=== PATIENT | male | born 1985 | race Caucasian/White ===

== ENCOUNTER 2025-01-28 13:14 | Emergency (ER) | payer BC, SELFPAY ==
[2025-01-28 13:24] VITALS: BP 138/20; PULSE 92; RESP 20; TEMP 37.3; O2SAT 96
--- NOTE | 2025-01-28 13:27 | ED.WOUNDLAC ---
HPI - Wound/Laceration General Chief Complaint: Wound/Laceration Stated Complaint: Left Ankle Laceration Time Seen by Provider: 01/28/25 13:17 patient presents to [facility] with complaints of continued bleeding to a laceration to left ankle that he sustained yesterday. Patient noted he was working on a bathroom remodel and cut his ankle on a piece of porcelain from the toilet. Patient unsure of when last tetanus vaccination was. Patient noted be clean the area and applied a bandage yesterday when he went to remove the bandage today to clean this noticed that this was still bleeding. Patient denies any changes in range of motion, numbness, or tingling. Related Data Home Medications ?Medication ?Instructions ?Recorded ?Confirmed ?Last Taken ?Type No Home Medications 01/28/25 01/28/25 Unknown History Allergies Allergy/AdvReac Type Severity Reaction Status Date / Time contrast media Allergy Unknown Anaphylactic Uncoded 01/28/25 13:42 Shock Review of Systems Constitutional: Constitutional: Reports no additional constitutional complaints, Denies chills, Denies fatigue, Denies fever(s) and Denies weakness Cardiovascular: Cardiovascular: Reports no additional cardiovascular complaints Respiratory: Respiratory: Reports no additional respiratory complaints Gastrointestinal: Gastrointestinal: Reports no additional gastrointestinal complaints Genitourinary: Genitourinary: Reports no additional male genitourinary complaints Musculoskeletal: Musculoskeletal: Reports as per HPI, Denies arthralgias, Denies joint swelling and Denies muscle cramps Integumentary/Breasts: Skin/Breast: Reports as per HPI, Denies pruritus, Denies erythema and Denies rash Comments: Laceration left ankle Neurologic: Reports as per HPI, Denies numbness and Denies weakness Psychiatric: Psychiatric: Reports no additional psychiatric complaints Endocrine: Endocrine: Reports no additional endocrine complaints Hematologic/Lymphatic: Hematologic/Lymphatic: Reports no additional hematologic/lymphatic complaints Allergic/Immunologic: Allergic/Immunologic: Reports no additional allergic/immunologic complaints Exam Const: General: healthy appearing and no acute distress Nutritional Appearance: well nourished Orientation/consciousness: patient oriented x3 Limitations: no limitations Resp: Effort & Inspection: normal respiratory effort Auscultation: clear to auscultation bilaterally Cardio: Rate: regular rate Rhythm: regular rhythm Skin: General skin exam: normal color Rashes: no rashes Wounds: wounds noted Other: 7cm gaping laceration noted to left medial ankle. Mild bleeding noted. Unable to approximate wound. visualization adipose tissue- no tendon or ligaments noted. Neuro: General: patient oriented x3, moves all extremities and no focal motor deficits Speech: normal speech Gait exam (Neuro): Normal gait present Extrem: Left lower extremity: ankle (7cm laceration noted to left medial ankle- gaping. ) Details: abnormal to inspection, normal ROM and laceration; no tenderness, no swelling, no warmth, no abrasions, no ecchymosis and achilles tendon exam normal Psych: Mental Status: mental status grossly normal Affect: normal affect Attitude: cooperative Course Course Level of Care: Express Care Visit Vital Signs Vital signs: Vital Signs Temperature 99.2 F 01/28/25 13:24 Pulse Rate 92 01/28/25 13:24 Respiratory Rate 20 01/28/25 13:24 Blood Pressure 138/20 L 01/28/25 13:24 Pulse Oximetry 96 01/28/25 13:24 Oxygen Delivery Room Air 01/28/25 13:24 Temperature 99.2 F 01/28/25 13:24 Pulse Rate 92 01/28/25 13:24 Respiratory Rate 20 01/28/25 13:24 Blood Pressure 138/20 L 01/28/25 13:24 Pulse Oximetry 96 01/28/25 13:24 Oxygen Delivery Room Air 01/28/25 13:24 MDM - Wound/Laceration MDM Narrative Medical decision making narrative: spoke with patient about the way the graded in 24 hours old and unable to suture this wound closed. Unable to approximate wound to close with Steri-Strips. Educated patient wound care with Surgicel. educated patient on signs and symptoms of infection to return to the urgent care follow-up with primary care for. Discharge instructions reviewed with patient, as well as provided in writing per nursing staff. The instructions also include specific and strict return/GO TO THE ER as well as f/u information. All questions have been answered, and the patient deny any further questions with discharge and discharge plan. Differential Diagnosis Differential diagnosis: Likely laceration, abscess, abrasion and avulsion of skin Medical Records Attestation: I reviewed the patient's medical records. Discharge Plan Discharge Clinical Impression: Laceration of ankle, left Patient Disposition: Home Condition: Stable Instructions: Antibiotic Form, Laceration (ED), Acute Wounds (ED) Additional Instructions: we have placed something called Surgicel and a pressure dressing to this area. After 48 hours Remove the pressure dressing and leave the Surgicel to soak off in warm water. Once this is completely soaked off and able to be removed use gentle cleanser and warm water daily to clean the area and apply Neosporin your non adherent bandages and Coban. Watch for signs and symptoms of infection including increased pain, redness, drainage, or fever. If these occurred return to the Express Care or follow up with primary care for further evaluation. Patient Language: [place]ese Follow-up/Referrals: PHYSICIAN,FURNITURE CLEANER [Primary Care Provider] - Stand Alone Forms: Work/School Release IP Time of Disposition: 13:48
[2025-01-28] MEDS: TETANUS,DIPHTHERIA,AC PERTUSSIS ADULT (0.5 ML) BOOSTRIX IM (13:45)
== END 2025-01-28 14:03 | disposition home or self-care (01) ==
PROVIDERS: Emergency Provider Nurse Practitioner Family
DX: S91.012A Laceration without foreign body, left ankle, initial encounter (principal); W26.8XXA Contact with other sharp object(s), not elsewhere classified, initial encounter; Z23 Encounter for immunization
CPT/HCPCS: 90471; 90715; 99212; G0463